=== PATIENT | male | born 1940 | race Hispanic/Latino ===

== ENCOUNTER 2017-09-25 03:04 | Emergency (ER) | payer MEDICARE, BC ==
[~2017-09-25] VITALS: Ht 167.6 cm; Wt 68.0 kg
[~2017-09-25 03:04] MED LIST: ALEVE; ALPRAZOLAM1 MG PO; Acetaminophen PO; BENZONATATE100 MG PO; DIOVAN160 MG PO; HYDRALAZINE HCL25 MG PO; HYDROXYZINE HCL25 MG PO; LIDOCAINE PATCH TOP; NORCO 7.5-3251 EACH PO; PEPCID20 MG PO; SENNA LAX8.6 MG PO; ULTRAM 50MG50 MG PO; ZOFRAN ODT4 MG PO
[2017-09-25] MEDS ORDERED: IBUPROFEN 600 MG TAB PO STA (03:23)
[2017-09-25] MEDS ORDERED: DIAZEPAM 2 MG TAB PO ONE (03:30)
== END 2017-09-25 05:00 | disposition home or self-care (01) ==
LOC: ER 03:04
DX: G44.221 Chronic tension-type headache, intractable (principal); M54.2 Cervicalgia; S16.1XXA Strain of muscle, fascia and tendon at neck level, initial encounter; Z86.73 Personal history of transient ischemic attack (TIA), and cerebral infarction without residual deficits
CPT/HCPCS: 99282

== ENCOUNTER 2017-10-22 01:15 | Emergency (ER) | payer MEDICARE, BC ==
[~2017-10-22] VITALS: Ht 167.6 cm; Wt 68.0 kg
[2017-10-22 02:00] LABS: BASOPHILS % 0.2 % (0.0-1.0); EOSINOPHILS % 0.4 % (0.0-6.0); HEMATOCRIT 41.8 % (38.2-49.6); HEMOGLOBIN 14.4 g/dL (14.0-18.0); LYMPHOCYTES % 12.4 % (18.0-39.1); MEAN CORPUSCULAR HEMOGLOBIN 33.3 pg (28-32); MEAN CORPUSCULAR HGB CONC 34.4 g/dL (31-35); MEAN CORPUSCULAR VOLUME 96.5 fL (81-99); MONOCYTES # (AUTO) 0.5 (0.2-0.8); MONOCYTES % 6.6 % (4.4-11.3); NEUTROPHILS # (AUTO) 6.6 (2.1-6.9); NEUTROPHILS % 80.3 % (38.7-80.0); PLATELET COUNT 203 x10e3/uL (140-360); RED BLOOD COUNT 4.33 x10e6/uL (4.3-5.7); RED CELL DISTRIBUTION WIDTH 13.1 % (11.7-14.4)
[2017-10-22 02:08] LABS: INR 0.86; PROTHROMBIN TIME 12.2 seconds (11.9-14.5)
[2017-10-22 02:09] LABS: PARTIAL THROMBOPLASTIN TIME 30.5 seconds (23.8-35.5)
[2017-10-22 02:19] LABS: ALANINE AMINOTRANSFERASE 34 IU/L (0-55); ALBUMIN/GLOBULIN RATIO 1.1 (0.8-2.0); ALKALINE PHOSPHATASE 83 IU/L (40-150); ANION GAP 15.8 mmol/L (8-16); BLOOD UREA NITROGEN 16 mg/dL (7-26); BUN/CREATININE RATIO 19 (6-25); CALCIUM 9.4 mg/dL (8.4-10.2); CARBON DIOXIDE 23 mmol/L (22-29); CHLORIDE 101 mmol/L (98-107); CREATINE KINASE 88 IU/L (30-200); CREATININE, SERUM 0.84 mg/dL (0.72-1.25); EST GLOMERULAR FILTRATION RATE > 60 ML/MIN (60-); GLUCOSE 155 mg/dL (74-118); POTASSIUM 3.8 mmol/L (3.5-5.1); SODIUM 136 mmol/L (136-145)
--- NOTE | 2017-10-22 02:25 | Diagnostic Imaging Report ---
EXAMINATION: CHEST SINGLE (PORTABLE) INDICATION: Chest pain. COMPARISON: None FINDINGS: TUBES and LINES: None. LUNGS: Lungs are well inflated. Lungs are clear. There is no evidence of pneumonia or pulmonary edema. PLEURA: No pleural effusion or pneumothorax. HEART AND MEDIASTINUM: The cardiomediastinal silhouette is unremarkable. BONES AND SOFT TISSUES: No acute osseous lesion. Soft tissues are unremarkable. UPPER ABDOMEN: No free air under the diaphragm. IMPRESSION: No acute thoracic abnormality. Signed by: Dr. Jake Zayas M.D. on 10/22/2017 2:21 AM
== END 2017-10-22 02:40 | disposition home or self-care (01) ==
LOC: ER 01:15
DX: R07.89 Other chest pain (principal); I10 Essential (primary) hypertension; Z86.73 Personal history of transient ischemic attack (TIA), and cerebral infarction without residual deficits
CPT/HCPCS: 36415; 71045; 80053; 82550; 82553; 84484; 85025; 85379; 85610; 85730; 93005; 99283

== ENCOUNTER → 2020-11-09 | Day surgery (SDC) | payer BC ==
[2020-11-07 13:03] LABS: BASOPHILS % 0.4 % (0.0-1.0); EOSINOPHILS # (AUTO) 0.1 (0.0-0.4); EOSINOPHILS % 1.5 % (0.0-6.0); HEMATOCRIT 42.1 % (38.2-49.6); HEMOGLOBIN 14.5 g/dL (14.0-18.0); LYMPHOCYTES % 20.7 % (18.0-39.1); MEAN CORPUSCULAR HEMOGLOBIN 33.3 pg (28-32); MEAN CORPUSCULAR HGB CONC 34.4 g/dL (31-35); MEAN CORPUSCULAR VOLUME 96.8 fL (81-99); MONOCYTES # (AUTO) 0.5 (0.2-0.8); MONOCYTES % 10.7 % (4.4-11.3); NEUTROPHILS # (AUTO) 3.1 (2.1-6.9); NEUTROPHILS % 66.5 % (38.7-80.0); PLATELET COUNT 226 x10e3/uL (140-360); RED BLOOD COUNT 4.35 x10e6/uL (4.3-5.7); RED CELL DISTRIBUTION WIDTH 12.8 % (11.7-14.4)
[~2020-11-09] MED LIST changes: +CYMBALTA60 MG PO; +ELIQUIS5 MG PO; +FENTANYL CITRATE/PF 100MCG/2 ML INJ ONE; +FUROSEMIDE40 MG PO; +HYDROCODON-ACE1 EA15 PO; +HYOSCYAMINE SULFATE 0.5 MG/ML INJ ONE; +LIDOCAINE HCL 2% LOCAL INJ 5 ML SDV VIAL INJ ONE; +LOSARTAN POTASS25 MG PO; +NAMENDA10 MG PO; +PROPOFOL IV EMULSION 10 MG/ML 20 ML VIAL ONE
[2020-11-09 12:45] VITALS: BP 149/84
== END | disposition home or self-care (01) ==
LOC: OR 08:24
PROVIDERS: ATTEND Internal Medicine Gastroenterology
DX: R15.9 Full incontinence of feces (principal); D12.0 Benign neoplasm of cecum; D12.2 Benign neoplasm of ascending colon; K62.89 Other specified diseases of anus and rectum; K64.8 Other hemorrhoids; I49.1 Atrial premature depolarization; I69.354 Hemiplegia and hemiparesis following cerebral infarction affecting left non-dominant side; M54.9 Dorsalgia, unspecified; I10 Essential (primary) hypertension; R05 Cough; F41.9 Anxiety disorder, unspecified; Z88.8 Allergy status to other drugs, medicaments and biological substances; Z88.6 Allergy status to analgesic agent; Z01.810 Encounter for preprocedural cardiovascular examination; Z01.812 Encounter for preprocedural laboratory examination; Z20.822 Contact with and (suspected) exposure to COVID-19; Z79.02 Long term (current) use of antithrombotics/antiplatelets
CPT/HCPCS: 36415; 45380; 45384; 85025; 93005; J1980; J2001; J2704; U0002; 45378; 45385; J3010